=== PATIENT | male | born 1965 | race African-American/Black ===

== ENCOUNTER 2018-09-17 23:09 | Emergency (ER) | payer MEDICAID | END 2018-09-17 23:30 | disposition left against medical advice (07) | LOC: ER 23:09 | DX: M79.629 Pain in unspecified upper arm (principal); Z53.21 Procedure and treatment not carried out due to patient leaving prior to being seen by health care provider ==

== ENCOUNTER 2022-07-18 23:56 | Emergency (ER) | payer MEDICAID, OTHER ==
[~2022-07-18] VITALS: Ht 182.9 cm; Wt 100.0 kg
[2022-07-19 00:10] VITALS: BP 142/69
== END 2022-07-19 02:00 | disposition left against medical advice (07) ==
LOC: ER 23:56
DX: Z53.21 Procedure and treatment not carried out due to patient leaving prior to being seen by health care provider (principal)